=== PATIENT | male | born 1950 | race Caucasian/White ===

== ENCOUNTER 2017-08-07 11:37 | Outpatient (CLI) | payer OTHER ==
--- NOTE | 2017-08-07 13:47 | RAD ---
RIGHT KNEE 4 VIEWS: HISTORY: Right leg pain. Abscess. FINDINGS: Mild osteophytosis is present. Joint spaces are preserved. No acute fracture or dislocation. Promi nent soft tissue swelling at the suprapatellar anterior thigh is apparent. A small amount of fluid d istends the suprapatellar bursa on the lateral view. IMPRESSION: Small amount of joint fluid may reflect an effusion from degenerative changes or underlying inflammat ion. Prominent soft tissue swelling over the anterior lower thigh is apparent without soft tissue ga s. No aggressive osseous destruction. POS: KEN
== END 2017-08-07 11:38 | disposition home or self-care (01) ==
LOC: MADRAD 11:37
PROVIDERS: ATTEND General Practice
DX: L03.119 Cellulitis of unspecified part of limb (principal); L02.419 Cutaneous abscess of limb, unspecified

== ENCOUNTER 2017-12-17 10:53 | Outpatient (CLI) | payer OTHER ==
--- NOTE | 2017-12-17 12:39 | RAD ---
LEFT KNEE FOUR VIEWS: History: Chronic knee pain. FINDINGS/IMPRESSION: No fracture, dislocation, or bony destruction is seen. There are mild degenerative changes. POS: KEN
== END 2017-12-17 10:54 | disposition home or self-care (01) ==
LOC: MADRAD 10:53
PROVIDERS: ATTEND General Practice
DX: M17.12 Unilateral primary osteoarthritis, left knee (principal)

== ENCOUNTER 2021-02-04 10:09 | Outpatient (CLI) | payer BC, MEDICARE ==
[2021-02-04 10:35] LABS: #Basophils 0.1 thou/uL (0.0-0.2); #Eosinphils 0.1 thou/uL (0.0-0.7); #Lymphocytes 1.9 thou/uL (1.20-3.40); #Monocytes 0.9 thou/uL (0.11-0.59); #Neutrophils 12.6 thou/uL (1.40-6.50); %Basophils 0.6 % (0.0-1.0); %Eosinophils 0.9 % (0.0-10.0); %Monocytes 5.9 % (0.0-10.0); %Neutrophils 80.6 % (42.0-75.0); Hemoglobin 15.6 g/dL (14.0-18.0); Mean Corpuscular HGB CONC 31.4 g/dL (32.0-36.0); Mean Corpuscular Hemoglobin 31.6 pg (27.0-31.0); Mean Corpuscular Volume 100.7 fL (78.0-98.0); Mean Platelet Volume 6.9 fL (7.4-10.4); Platelet Count 335 thou/uL (130-400); RBC Distribution Width 12.7 % (11.5-14.5); Red Blood Cell (RBC) Count 4.93 mill/uL (4.70-6.10); White Blood Cell (WBC) Count 15.6 thou/uL (4.8-10.8)
[2021-02-04 10:54] LABS: ALT (SGPT) 22 U/L (8-55); AST (SGOT) 17 U/L (5-34); Albumin 4.4 g/dL (3.4-4.8); Alkaline Phosphatase 86 U/L (40-110); Anion Gap 12 mmol/L (10-20); BUN (Urea Nitrogen) 14 mg/dL (8.4-25.7); Bilirubin, Total 0.3 mg/dL (0.2-1.2); Calc. Creatinine Clearance 0 mL/min (70-130); Calcium 9.9 mg/dL (7.8-10.44); Carbon Dioxide 29 mmol/L (23-31); Chloride 101 mmol/L (98-107); Globulin 3.4 g/dL (2.4-3.5); Glucose 103 mg/dL (80-115); Potassium 4.1 mmol/L (3.5-5.1); Protein, Total 7.8 g/dL (5.8-8.1); Sodium 138 mmol/L (136-145)
[2021-02-04 17:57] LABS: Creatinine, Urine 76.7 mg/dL (63-166); Microalbumin Urine 1.4 mg/dL (0.5-50.0); Microalbumin/Creat Ratio 18.3 mg/g (Less than 30)
== END 2021-02-04 10:10 | disposition home or self-care (01) ==
LOC: MADLAB 10:09
PROVIDERS: ATTEND Family Medicine
DX: R06.00 Dyspnea, unspecified (principal); J44.1 Chronic obstructive pulmonary disease with (acute) exacerbation
CPT/HCPCS: 36415; 71046; 80053; 82043; 83880; 85025

== ENCOUNTER 2022-05-05 16:06 | Outpatient (CLI) | payer MEDICARE ==
[2022-05-05 16:34] LABS: Anion Gap 18 mmol/L (10-20); BUN (Urea Nitrogen) 16 mg/dL (8.4-25.7); CRP (Inflammatory) 1.93 mg/dL (= or < 0.5); Calc. Creatinine Clearance 0 mL/min (70-130); Calcium 9.4 mg/dL (7.8-10.44); Carbon Dioxide 32 mmol/L (23-31); Chloride 89 mmol/L (98-107); Estimated GFR 95; Potassium 4.5 mmol/L (3.5-5.1); Sodium 134 mmol/L (136-145)
[2022-05-05 16:35] LABS: Glucose 308 mg/dL (80-115)
[2022-05-05 16:37] LABS: #Basophils 0.1 thou/uL (0.0-0.2); #Lymphocytes 0.5 thou/uL (1.20-3.40); #Monocytes 0.4 thou/uL (0.11-0.59); %Basophils 0.3 % (0.0-1.0); %Eosinophils 0.2 % (0.0-10.0); %Lymphocytes 2.9 % (21.0-51.0); %Neutrophils 94.6 % (42.0-75.0); Hemoglobin 12.9 g/dL (14.0-18.0); Mean Corpuscular HGB CONC 30.8 g/dL (32.0-36.0); Mean Corpuscular Hemoglobin 29.8 pg (27.0-31.0); Mean Corpuscular Volume 96.7 fl (78.0-98.0); Mean Platelet Volume 6.3 fL (7.4-10.4); Platelet Count 427 thou/uL (130-400); RBC Distribution Width 14.3 % (11.5-14.5); Red Blood Cell (RBC) Count 4.33 mill/uL (4.70-6.10); White Blood Cell (WBC) Count 17.9 thou/uL (4.8-10.8)
== END 2022-05-05 16:07 | disposition home or self-care (01) ==
LOC: MADLAB 16:06
PROVIDERS: ATTEND Family Medicine
DX: J96.90 Respiratory failure, unspecified, unspecified whether with hypoxia or hypercapnia (principal); I50.9 Heart failure, unspecified; J18.9 Pneumonia, unspecified organism; I25.10 Atherosclerotic heart disease of native coronary artery without angina pectoris; E11.9 Type 2 diabetes mellitus without complications
CPT/HCPCS: 80048; 85025; 86140